=== PATIENT | male | born 1995 | race Caucasian/White ===

== ENCOUNTER 2023-06-14 21:40 | Emergency (ER) | payer MEDICAID ==
[~2023-06-14] VITALS: Ht 182.9 cm; Wt 109.1 kg
[2023-06-14 21:55] VITALS: BP 146/74; PULSE 130; RESP 16; TEMP 98.2
[2023-06-14] MEDS ORDERED: ACET-2080 PO (22:57)
[2023-06-14] MEDS ORDERED: IBUP-1554 PO (22:57)
== END 2023-06-14 23:03 | disposition home or self-care (01) ==
LOC: EMS 21:42
DX: S86.111A Strain of other muscle(s) and tendon(s) of posterior muscle group at lower leg level, right leg, initial encounter (principal); W10.1XXA Fall (on)(from) sidewalk curb, initial encounter; Y93.89 Activity, other specified; Y92.89 Other specified places as the place of occurrence of the external cause; Y99.8 Other external cause status
CPT/HCPCS: 93971; 99284; Z7502

== ENCOUNTER 2024-10-03 14:12 | Emergency (ER) | payer MEDICAID ==
[~2024-10-03] VITALS: Ht 182.9 cm; Wt 110.0 kg
[~2024-10-03 14:12] MED LIST: HYDR-4062 PO; IBUP-1554 PO
[2024-10-03 14:28] VITALS: BP 129/76; PULSE 108; RESP 18; TEMP 98.1; O2SAT 97
== END 2024-10-03 15:47 | disposition home or self-care (01) ==
LOC: EMS 14:12
DX: S00.83XA Contusion of other part of head, initial encounter (principal); R04.0 Epistaxis; Z79.899 Other long term (current) drug therapy; W16.012A Fall into swimming pool striking water surface causing other injury, initial encounter; Y93.89 Activity, other specified; Y92.89 Other specified places as the place of occurrence of the external cause; Y99.8 Other external cause status
CPT/HCPCS: 70486; 99284; Z7502